=== PATIENT | male | born 1975 | race Hispanic/Latino ===

== ENCOUNTER 2020-04-04 11:47 | Outpatient (CLI) | payer OTHER ==
--- NOTE | 2020-04-04 12:09 | RAD ---
LEFT FOOT 3 VIEWS: HISTORY: Left foot pain. FINDINGS/IMPRESSION: No bony abnormality is seen. POS: OFF
== END 2020-04-04 11:48 | disposition home or self-care (01) ==
LOC: MADRAD 11:47
PROVIDERS: ATTEND Physician Assistant
DX: M79.672 Pain in left foot (principal)